=== PATIENT | female | born 1970 | race Caucasian/White ===

== ENCOUNTER 2022-06-18 05:22 | Emergency (ER) | payer MEDICAID ==
[~2022-06-18] VITALS: Ht 167.6 cm; Wt 61.4 kg
[2022-06-18 05:24] VITALS: BP 148/96
[2022-06-18] MEDS ORDERED: proparacaine 0.5% ophthalmic drops 15ml EACHEYE ONE (06:55)
[2022-06-18] MEDS ORDERED: OFLO5DRO LEFTEYE (07:22)
[2022-06-18] MEDS ORDERED: TOBR5DRO57 LEFTEYE (07:22)
--- NOTE | 2022-06-19 14:44 | NUR ---
Patient called regarding prescriptions not being sent over to [facility] [address]. I called [facility] [address] at which they verified with me that they were, patient just needs to provided them with her insurance information. Attempted to call patient at listed number at which number is no longer valid. Pharmacy did state that they would put medication for tobramycin and ofloxacin under [facility] until patient provided insurance information. 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
== END 2022-06-18 08:00 | disposition home or self-care (01) ==
LOC: ER 05:23
DX: H16.002 Unspecified corneal ulcer, left eye (principal)
CPT/HCPCS: 99283